=== PATIENT | female | born 2000 | race African-American/Black ===

== ENCOUNTER 2020-12-02 06:39 | Inpatient (IN) | payer MEDICAID ==
[~2020-12-02] VITALS: Ht 154.9 cm; Wt 50.8 kg
[~2020-12-02 06:39] MED LIST: NOCURR
[2020-12-02] MEDS ORDERED: ZOLPIDEM TARTRATE 10 MG TABLET PO PRN (11:30)
[2020-12-03] MEDS ORDERED: CloNIDine HCL 0.1 MG TABLET PO PRN (06:30)
[2020-12-03] MEDS ORDERED: ACETAMINOPHEN 325 MG TABLET PO PRN (06:30)
[2020-12-03] MEDS ORDERED: LOPERAMIDE HCL 2 MG CAPSULE PO PRN (06:30)
[2020-12-03] MEDS ORDERED: IBUPROFEN 600 MG TABLET PO PRN (06:30)
[2020-12-03] MEDS ORDERED: ONDANSETRON HCL 4 MG TABLET PO PRN (06:30)
[2020-12-03] MEDS ORDERED: PETROLATUM,WHITE 28 GM JELLY TP PRN (06:30)
[2020-12-03] MEDS ORDERED: MAG HYDROX/AL HYDROX/SIMETH ES 30 ML SUSPENSION UDCUP PO PRN (06:30)
[2020-12-03] MEDS ORDERED: BACITRACIN 28 GM OINTMENT TP PRN (06:30)
[2020-12-03] MEDS ORDERED: DOCUSATE SODIUM 100 MG CAPSULE PO PRN (06:30)
[2020-12-03] MEDS ORDERED: MAGNESIUM HYDROXIDE SUSPENSION 30 ML UDCUP PO PRN (06:30)
[2020-12-03] MEDS ORDERED: BENZOCAINE/MENTHOL LOZENGE PO PRN (06:30)
[2020-12-03] MEDS ORDERED: ALBUTEROL SULFATE HFA 90 MCG/PUFF 8 GM INHALER IH PRN (06:30)
[2020-12-03] MEDS ORDERED: OMEPRAZOLE 20 MG CAPSULE PO PRN (06:30)
[2020-12-03] MEDS: LORazepam 2 MG TABLET PO PRN (12:37)
[2020-12-03] MEDS ORDERED: DiphenhydrAMINE HCL 50 MG/ML VIAL IM ONE (15:30)
[2020-12-03] MEDS ORDERED: HALOPERIDOL LACTATE 5 MG/ML VIAL IM ONE (15:30)
[2020-12-03] MEDS ORDERED: LORazepam 2 MG/ML VIAL IM ONE (15:30)
[2020-12-03 16:24] VITALS: BP 112/61
[2020-12-04 06:38] VITALS: BP 110/63
[2020-12-04] MEDS ORDERED: HALOPERIDOL LACTATE 5 MG/ML VIAL IM ONE (08:00)
[2020-12-04] MEDS ORDERED: LORazepam 2 MG/ML VIAL IM ONE (08:00)
[2020-12-04] MEDS ORDERED: DiphenhydrAMINE HCL 50 MG/ML VIAL IM ONE (08:00)
[2020-12-04] MEDS ORDERED: DiphenhydrAMINE HCL 50 MG/ML VIAL ONE (08:01)
[2020-12-04] MEDS ORDERED: LORazepam 2 MG/ML VIAL ONE (08:01)
[2020-12-04] MEDS ORDERED: HALOPERIDOL LACTATE 5 MG/ML VIAL ONE (08:01)
[2020-12-04 08:10] LABS: APPEARANCE,URINE TURBID (CLEAR); BILIRUBIN,URINE NEGATIVE (NEGATIVE); GLUCOSE, URINE (UA) NEGATIVE (NEGATIVE); KETONES,URINE TRACE mg/dL (NEGATIVE); NITRATE,URINE NEGATIVE (NEGATIVE); PROTEIN,URINE POS 1+ (NEGATIVE); UROBILINOGEN,URINE 0.2 mg/dL (<=1.0)
[2020-12-04 08:30] LABS: AMPHET/METH SCREEN,URINE POSITIVE (NEGATIVE); BARBITURATE SCREEN, URINE NEGATIVE (NEGATIVE); BENZODIAZEPINES SCREEN,URINE NEGATIVE (NEGATIVE); CANNABINOID SCREEN,URINE POSITIVE (NEGATIVE); COCAINE SCREEN,URINE NEGATIVE (NEGATIVE); METHADONE SCREEN, URINE NEGATIVE (NEGATIVE); OPIATE SCREEN,URINE NEGATIVE (NEGATIVE)
[2020-12-04 08:33] LABS: PHENCYCLIDINE SCREEN,URINE NEGATIVE (NEGATIVE)
[2020-12-04 08:45] LABS: LEUKOCYTE ESTERASE ,URINE SMALL (NEGATIVE); OCCULT BLOOD,URINE SMALL (NEGATIVE)
[2020-12-04 08:46] LABS: AMORPHOUS SEDIMENT,UR Many /LPF (None Seen); BACTERIA,URINE Moderate /HPF (None Seen); SQUAMOUS EPITHELIAL CELL,UR Few /LPF (None Seen)
[2020-12-04] MEDS: LITHIUM CARBONATE 300 MG CAPSULE PO SCH ×2 (09:00→17:52)
[2020-12-04] MEDS: DIVALPROEX SODIUM 500 MG DR TABLET PO SCH ×2 (09:00→17:52)
[2020-12-04 17:34] VITALS: BP 97/57
[2020-12-04] MEDS: OLANZapine 10 MG TABLET PO SCH (20:36)
[2020-12-04] MEDS: LORazepam 2 MG TABLET PO PRN (20:38)
[2020-12-05] MEDS: DIVALPROEX SODIUM 500 MG DR TABLET PO SCH ×2 (09:00→16:33)
[2020-12-05] MEDS: LITHIUM CARBONATE 300 MG CAPSULE PO SCH ×2 (09:00→16:33)
[2020-12-05] MEDS: CEPHALEXIN MONOHYDRATE 500 MG CAPSULE PO SCH ×2 (09:00→16:33)
[2020-12-05] MEDS ORDERED: HALOPERIDOL LACTATE 5 MG/ML VIAL ONE (10:41)
[2020-12-05] MEDS ORDERED: DiphenhydrAMINE HCL 50 MG/ML VIAL ONE (10:41)
[2020-12-05] MEDS ORDERED: DiphenhydrAMINE HCL 50 MG/ML VIAL IM ONE (10:45)
[2020-12-05] MEDS ORDERED: LORazepam 2 MG/ML VIAL IM ONE (10:45)
[2020-12-05] MEDS ORDERED: HALOPERIDOL LACTATE 5 MG/ML VIAL IM ONE (10:45)
[2020-12-05] MEDS: OLANZapine 10 MG TABLET PO SCH (20:34)
[2020-12-05] MEDS: LORazepam 2 MG TABLET PO PRN (21:30)
[2020-12-06] MEDS: CEPHALEXIN MONOHYDRATE 500 MG CAPSULE PO SCH ×2 (09:06→17:11)
[2020-12-06] MEDS: DIVALPROEX SODIUM 500 MG DR TABLET PO SCH ×2 (09:06→17:11)
[2020-12-06] MEDS: LITHIUM CARBONATE 300 MG CAPSULE PO SCH ×2 (09:06→17:11)
[2020-12-06] MEDS: LORazepam 2 MG TABLET PO PRN ×2 (09:11→17:11)
[2020-12-06 16:26] VITALS: BP 112/66
[2020-12-06] MEDS: OLANZapine 10 MG TABLET PO SCH (20:25)
[2020-12-07 01:04] VITALS: BP 109/61
[2020-12-07 07:48] LABS: EOSINOPHILS % (AUTO) 2.7 % (1.0-6.0); HEMATOCRIT 43.8 % (36-46); HEMOGLOBIN 14.1 g/dL (12.0-16.0); LYMPHOCYTES # (AUTO) 2.2 K/uL (1.0-4.8); LYMPHOCYTES % (AUTO) 40.2 % (22.0-44.0); MEAN CORPUSCULAR HEMOGLOBIN 26.7 pg (26.0-34.0); MEAN CORPUSCULAR HGB CONC 32.1 G/dL (31.0-37.0); MEAN CORPUSCULAR VOLUME 83 fL (80-100); MONOCYTES # (AUTO) 0.3 K/uL (0.1-1.0); MONOCYTES % (AUTO) 5.4 % (2.0-9.0); NEUTROPHILS # (AUTO) 2.8 K/uL (1.8-7.7); NEUTROPHILS % (AUTO) 50.7 % (40.0-70.0); PLATELET COUNT (AUTO) 306 K/uL (150-450); RED BLOOD CELL COUNT(AUTO) 5.27 MIL/uL (4.00-5.20); RED CELL DISTRIBUTION WIDTH 13.4 % (11.5-14.5)
[2020-12-07 08:15] VITALS: BP 110/68
[2020-12-07 08:26] LABS: ALANINE AMINOTRANSFERASE 30 U/L (12-78); ALBUMIN 3.4 g/dL (3.4-5.0); ALKALINE PHOSPHATASE 65 U/L (46-116); ANION GAP 7 mmol/L (8-16); ASPARTATE AMINOTRANSFERASE 37 U/L (15-37); BILIRUBIN,TOTAL 0.2 mg/dL (0.1-1.0); CALCIUM, TOTAL 8.9 mg/dL (8.8-10.5); CARBON DIOXIDE 28 mmol/L (22-29); CHLORIDE 105 mmol/L (98-107); CHOL/HDL RATIO 2.5 (3.9-5.7); CHOLESTEROL 141 mg/dL (131-200); CREATININE 0.69 mg/dL (0.60-1.30); FREE T4 (FREE THYROXINE) 0.79 ng/dL (0.76-1.46); GLOMERULAR FILTR. RATE CALC > 60 mL/min (>60); GLUCOSE,RANDOM 79 mg/dL (70-110); HCG,QUANTITATIVE < 1 mIU/mL (0-6); HDL CHOLESTEROL 57 mg/dL (40-60); LDL CHOL (CALC.) 76 mg/dL (0-130); POTASSIUM 4.1 mmol/L (3.5-5.1); SODIUM SERUM 140 mmol/L (136-145); THYROID STIMULATING HORMONE 2.35 uIU/mL (0.36-3.74); TRIGLYCERIDES 38 mg/dL (15-150); UREA NITROGEN, BLOOD 17 mg/dL (7-18)
[2020-12-07] MEDS: CEPHALEXIN MONOHYDRATE 500 MG CAPSULE PO SCH ×2 (08:28→16:52)
[2020-12-07] MEDS: DIVALPROEX SODIUM 500 MG DR TABLET PO SCH ×2 (08:28→16:52)
[2020-12-07] MEDS: LITHIUM CARBONATE 300 MG CAPSULE PO SCH ×2 (08:28→16:52)
[2020-12-07] MEDS: LORazepam 2 MG TABLET PO PRN ×2 (08:29→16:52)
[2020-12-07] MEDS: HALOPERIDOL 5 MG TABLET PO PRN ×2 (08:29→16:52)
[2020-12-07 08:37] LABS: HEMOGLOBIN A1C 5.2 % (3.8-5.6)
[2020-12-07 16:20] VITALS: BP 111/69
[2020-12-07] MEDS: OLANZapine 10 MG TABLET PO SCH (21:00)
[2020-12-08 05:22] VITALS: BP 115/72
[2020-12-08 07:45] LABS: LITHIUM 0.23 mmol/L (0.60-1.20)
[2020-12-08] MEDS: DIVALPROEX SODIUM 500 MG DR TABLET PO SCH (08:09)
[2020-12-08] MEDS: CEPHALEXIN MONOHYDRATE 500 MG CAPSULE PO SCH (08:09)
[2020-12-08] MEDS: LITHIUM CARBONATE 300 MG CAPSULE PO SCH (08:09)
[2020-12-08] MEDS ORDERED: LITH300C3 PO (12:19)
[2020-12-08] MEDS ORDERED: DIVA-112 PO (12:19)
[2020-12-08] MEDS ORDERED: OLAN10TA74 PO (12:19)
[2020-12-08] MEDS ORDERED: CEPH500C3 PO (12:20)
== END 2020-12-08 12:30 | disposition home or self-care (01) | DRG 753 ==
LOC: B3A 13:45
PROVIDERS: ADMIT Psychiatry & Neurology Psychiatry; ATTEND Psychiatry & Neurology Psychiatry
DX: F31.9 Bipolar disorder, unspecified (principal); F22 Delusional disorders; F15.10 Other stimulant abuse, uncomplicated; K21.9 Gastro-esophageal reflux disease without esophagitis; K59.00 Constipation, unspecified; F17.200 Nicotine dependence, unspecified, uncomplicated; F99 Mental disorder, not otherwise specified; F19.10 Other psychoactive substance abuse, uncomplicated
CPT/HCPCS: 80053; 80061; 80164; 80178; 80307; 81001; 83036; 84436; 84439; 84443; 84702; 85025; 87077; 87086; 87186; G0480; J1200; J1630; J2060